=== PATIENT | female | born 1975 | race Caucasian/White ===

== ENCOUNTER 2019-01-19 08:57 | Emergency (ER) | payer BC, OTHER ==
[~2019-01-19] VITALS: Ht 170.2 cm; Wt 70.3 kg
[~2019-01-19 08:57] MED LIST: NASAL SPRAY30 ML; PROZAC40 MG PO
--- OUTSIDE RECORDS SUMMARY | 2019-01-19 09:01 | XMS REPORT ---
Author Author Raj Young Organization [employer] Address Unknown Phone Unavailable Care Team Providers Care Welfare Manager Name Role Phone Raj Young CP Unavailable Allergies, Adverse Reactions, Alerts Substance Reaction Event Type N.K.D.A. Info Not Available Non Drug Allergy Problems Problem Type Condition Code Onset Dates Condition Status Assessment Gastro-esophageal reflux disease with esophagitis K21.0 Active Problem Supraventricular tachycardia I47.1 Active Problem Palpitations R00.2 Active Problem Gastro-esophageal reflux disease with esophagitis K21.0 Active Assessment Supraventricular tachycardia I47.1 Active Assessment Anxiety disorder, unspecified F41.9 Active Problem Anxiety disorder, unspecified F41.9 Active Medications Medication Code System Code Instructions Start Date End Date Status Dosage Protonix [facility] [id number] 40 MG Orally Once a day Active 1 tablet Xanax ND 15972179149 0.25 MG Orally as needed (prn) Active 1 tablet Vital Signs Date/Time: September 11, 2018 BMI 23.96 Index Weight 153 lbs Height 5ft 7in in Cardiac Monitoring Heart Rate 89 /min Blood Pressure Diastolic 72 mm Hg Blood Pressure Systolic 110 mm Hg Results No Known Results Summary Purpose [employer] Submission
--- OUTSIDE RECORDS SUMMARY | 2019-01-19 09:01 | XMS REPORT | Continuity of Care Document ---
Author Author [facility] Address Unknown Phone Unavailable Care Team Providers Care School Supervisor Name Role Phone [employer] Unavailable Unavailable Problems Problem Status Onset Date Classification Date Reported Comments Source PALPITATIONS Active 09/01/2018 [facility] DX: [id number] DYSPEPSIA Active 09/01/2018 [facility] DX:R21.3=HYPERPARATHYROIDISM, UNSPECIFIE Active 12/06/2017 [facility] M06.4 - INFLAMMATORY POLYARTHROPATHY Active 10/06/2016 [facility] Palpitations Active Problem 09/13/2018 Raj Young MD, JACKIE Anxiety disorder, unspecified Active Diagnosis 09/13/2018 Raj Young MD, JACKIE Gastro-esophageal reflux disease with esophagitis Active Diagnosis 09/13/2018 Raj Young MD, JACKIE Supraventricular tachycardia Active Problem 09/13/2018 Raj Young MD, JACKIE Medications Medication Details Route Status Patient Instructions Ordering Provider Order Date Source Xanax 1 tablet Orally Active 0.25 MG Orally as needed (prn) Hannah Young MD, PA Protonix 1 tablet Orally Active 40 MG Orally Once a day Hannah Young MD, JACKIE Allergies, Adverse Reactions, Alerts Substance Category Reaction Severity Reaction type Status Date Reported Comments Source N.K.D.A. Adverse Reaction Info Not Available Adverse Reaction Active 09/11/2018 Raj Young MD, PA Immunizations No Data Provided for This Section Results No Data Provided for This Section Pathology Reports No Data Provided for This Section Diagnostic Reports Report Value Date Source Abdomen RUQ US Patient Name: ETHAN SALVADOR : 1975; Age: 43 years y/o Female MR: [id number] Study: Abdomen RUQ US 09/07/2018 8:18 CDT Ordering Physician: Lolita Fofana MD Clinical Indication: - dyspepsia; Comparison: 08/23/2008 Liver: Normal. Gallbladder: Normal. Common bile duct 4 mm, normal. Pancreas: Visualized portions normal. Pancreatic head and tail regions are not well seen, however. Right kidney: No hydronephrosis. No ascites fluid is seen in the right upper quadrant. IMPRESSION: No significant findings. SL: [id number] 09/07/2018 [facility] Parathyroid scan NM Clinical Indication: - E21.3 Hyperparathyroidism, unspecified; Comparison: None TECHNIQUE: Parathyroid scan is performed using 17.2 mCi of TcMIBI. 10 minute and 3 hour delayed coronal images are obtained. FINDINGS: There are no focal areas of increased radiotracer activity seen on the delayed images to suggest a parathyroid adenoma. There are no other foci of abnormal radiotracer activity seen. IMPRESSION: 1. No focal areas of increased radiotracer activity seen on the delayed images to suggest a parathyroid adenoma. SL: [id number] 12/20/2017 [facility] Thyroid US Patient Name: ETHAN SALVADOR : 1975; Age: 42 years y/o Female MR: [id number] Study: Thyroid US 12/20/2017 7:38 AM CDT Ordering Physician: Bienvenido Morrow MD Clinical Indication: - hyperthyrodism Comparison: None. TECHNIQUE: THYROID ECHOTEXTURE: Mildly diffusely heterogeneous and coarsened without significant hyperemia. RIGHT THYROID LOBE: Size: 5.3 x 1.5 x 2.1 cm. Nodules: Multiple subcentimeter nodules measuring up to 0.7 cm LEFT THYROID LOBE: Size: 4.8 x 1.5 x 1.7 cm. Nodules: Multiple subcentimeter nodules measuring up to 0.4 cm ISTHMUS: Size: 0.2 cm. Nodules: Small subcentimeter nodules. CERVICAL LYMPH NODES:No cervical lymphadenopathy. IMPRESSION: Mildly heterogeneous thyroid with multiple subcentimeter nodules. No suspicion for malignancy. SL: [id number] 12/20/2017 [facility] Hand 3 views Bilateral DX EXAM: XR BILATERAL HAND 3 VIEWS DATE: 10/06/2016 10:20 AM CDT INDICATION: M06.4 Inflammatory polyarthropathy COMPARISON: None TECHNIQUE: PA, lateral and oblique radiographs of the bilateral hands. FINDINGS: No acute fracture or malalignment is identified. Joint spaces and bone mineral density are preserved. No soft tissue abnormality is identified. IMPRESSION: No osseous or joint abnormality. 10/06/2016 [facility] Foot 3 views bilateral DX EXAM: XR BILATERAL FOOT 3 VIEWS DATE: 10/06/2016 10:20 AM CDT INDICATION: M06.4 Inflammatory polyarthropathy COMPARISON: None TECHNIQUE: AP, lateral and oblique radiographs of the bilateral feet FINDINGS: No acute fracture or malalignment is identified. No joint abnormality identified. No enthesophytes. No soft tissue abnormality is identified. IMPRESSION: No osseous or joint abnormality. 10/06/2016 [facility] Sacroiliac joints series DX EXAM: XR SACROILIAC JOINT 3 VIEWS DATE: 10/06/2016 10:20 AM CDT INDICATION: M06.4 Inflammatory polyarthropathy COMPARISON: None TECHNIQUE: AP, RPO and LPO radiographs of the sacroiliac joints FINDINGS: The sacroiliac joint widths are well preserved. No sclerosis or osseous erosion is seen on either side. No other bony abnormality is identified. No soft tissue abnormality is identified. IMPRESSION: No acute abnormality. 10/06/2016 [facility] Consultation Notes No Data Provided for This Section Discharge Summaries No Data Provided for This Section History and Physicals No Data Provided for This Section Vital Signs Vital Sign Value Date Comments Source Weight 153 09/11/2018 Raj Young MD, PA Heart Rate 89 09/11/2018 Raj Young MD, PA Diastolic (mm Hg) 72 09/11/2018 Raj Young MD, PA Systolic (mm Hg) 110 09/11/2018 Raj Young MD, PA Weight 70 09/01/2018 [facility] BMI Calculated 24.17 09/01/2018 [facility] Height 170.18 cm 09/01/2018 [facility] Encounters Location Location Details Encounter Type Encounter Number Reason For Visit Attending Provider ADM Date DC Date Status Source [facility] [place] [facility] [id number] Rain Lyman 10/06/2016 10/07/2016 [facility] [id number] Bienvenido Morrow 12/20/2017 12/21/2017 [facility] Outpatient [id number] Raj Young 09/01/2018 09/02/2018 [facility] Outpatient [id number] Lolita Fofana 09/07/2018 09/08/2018 [facility] Procedures No Data Provided for This Section Assessment and Plan No Data Provided for This Section Plan of Care No Data Provided for This Section Social History Social History Date Source No data available for this section 09/08/2018 [facility] No data available for this section 10/07/2016 [facility] [place] Family History No Data Provided for This Section Advance Directives No Data Provided for This Section Functional Status No Data Provided for This Section
--- OUTSIDE RECORDS SUMMARY | 2019-01-19 09:01 | XMS REPORT ---
Author Author Raj Young Organization [employer] Address Unknown Phone Unavailable Care Team Providers Care Chicken Hanger Name Role Phone Raj Young CP Unavailable Allergies No Known Allergies Problems Problem Type Condition Code Onset Dates Condition Status Problem Palpitations R00.2 Active Problem Anxiety disorder, unspecified F41.9 Active Medications Medication Code System Code Instructions Start Date End Date Status Dosage Xanax [facility] [id number] 0.25 MG Orally as needed (prn) Active 1 tablet Results No Known Results Summary Purpose [employer] Submission
--- OUTSIDE RECORDS SUMMARY | 2019-01-19 09:01 | XMS REPORT | Summary of Care ---
Author Author [facility] Organization [facility] Address Unknown Phone Unavailable Encounter HQ Encntr_sahara(FIN) [id number] Date(s): 09/07/18 - 09/07/18 [facility] [address] [place] [address]- Discharge Disposition: Home or Self Care Attending Physician: Lolita Fofana MD Referring Physician: Lolita Fofana MD Vital Signs No data available for this section Problem List No data available for this section Allergies, Adverse Reactions, Alerts Substance Reaction Severity Status NKDA Active Medications No data available for this section Results No data available for this section Immunizations No data available for this section Procedures No data available for this section Social History No data available for this section Assessment and Plan No data available for this section
--- OUTSIDE RECORDS SUMMARY | 2019-01-19 09:01 | XMS REPORT | Summary of Care ---
Author Author [facility] Outpatient Imaging [facility] Outpatient Imaging [facility] Address Unknown Phone Unavailable Encounter HQ Ileanar_gerardparul(TRISTIAN) [id number] Date(s): 10/06/16 - 10/06/16 [facility] Outpatient Imaging [facility] [address] [facility], [address] [place] [phone] Discharge Disposition: Home or Self Care Attending Physician: Rain Lyman MD Vital Signs No data available for this section Problem List No data available for this section Allergies, Adverse Reactions, Alerts No data available for this section Medications No data available for this section Results No data available for this section Immunizations No data available for this section Procedures No data available for this section Social History No data available for this section Assessment and Plan No data available for this section
--- OUTSIDE RECORDS SUMMARY | 2019-01-19 09:01 | XMS REPORT | Summary of Care ---
Author Author [facility] Organization [facility] Address Unknown Phone Unavailable Encounter HQ Tamara_sahara(TRISTIAN) [id number] Date(s): 09/01/18 - 09/01/18 [facility] [address] [place] [address]- Discharge Disposition: Home or Self Care Attending Physician: Raj Young MD Vital Signs Most recent to 1 oldest [Reference Range]: Height 170.18 cm (09/01/18 2:12 PM) Weight 70 kg (09/01/18 2:12 PM) Body Mass Index 24.17 m2 (09/01/18 2:12 PM) Problem List No data available for this [...]
--- OUTSIDE RECORDS SUMMARY | 2019-01-19 09:01 | XMS REPORT | Summary of Care ---
Author Author [facility] Organization [facility] Address Unknown Phone Unavailable Encounter HQ Ileanar_sahara(FIN) [id number] Date(s): 12/20/17 - 12/20/17 [facility] [address] [place] [address]- Discharge Disposition: Home or Self Care Attending Physician: Bienvenido Morrow MD Referring Physician: Bienvenido Morrow MD Vital Signs No data available for [...]
[2019-01-19] MEDS ORDERED: SODIUM CHLORIDE 0.9% 1000ML 1,000 ML IV SCH (09:15)
[2019-01-19 09:27] LABS: BASOPHILS % 0.6 % (0.0-1.0); EOSINOPHILS % 0.6 % (0.0-6.0); HEMATOCRIT 40.2 % (34.2-44.1); HEMOGLOBIN 13.9 g/dL (12.0-16.0); LYMPHOCYTES # (AUTO) 1.9 (1.0-3.2); MEAN CORPUSCULAR HEMOGLOBIN 30.8 pg (28-32); MEAN CORPUSCULAR HGB CONC 34.6 g/dL (31-35); MEAN CORPUSCULAR VOLUME 89.1 fL (81-99); MONOCYTES # (AUTO) 0.3 (0.2-0.8); NEUTROPHILS % 56.4 % (38.7-80.0); PLATELET COUNT 317 x10e3/uL (140-360); RED BLOOD COUNT 4.51 x10e6/uL (3.6-5.1); RED CELL DISTRIBUTION WIDTH 12.2 % (11.7-14.4)
[2019-01-19] MEDS ORDERED: KETOROLAC TROMETHAMINE 30 MG/ML VIAL IV ONE (09:30)
[2019-01-19] MEDS ORDERED: ONDANSETRON HCL INJ 2MG/ML 2ML 2 MG/ML VIAL IV ONE (09:30)
[2019-01-19 09:50] LABS: ALANINE AMINOTRANSFERASE 10 IU/L (0-55); ALBUMIN 4.1 g/dL (3.5-5.0); ALBUMIN/GLOBULIN RATIO 1.6 (0.8-2.0); ALKALINE PHOSPHATASE 54 IU/L (40-150); ANION GAP 16.4 mmol/L (8-16); BLOOD UREA NITROGEN 10 mg/dL (7-26); BUN/CREATININE RATIO 12 (6-25); CALCIUM 10.3 mg/dL (8.4-10.2); CARBON DIOXIDE 20 mmol/L (22-29); CHLORIDE 105 mmol/L (98-107); CREATININE, SERUM 0.85 mg/dL (0.57-1.11); EST GLOMERULAR FILTRATION RATE > 60 ML/MIN (60-); GLUCOSE 125 mg/dL (74-118); LIPASE 16 U/L (8-78); POTASSIUM 3.4 mmol/L (3.5-5.1); SODIUM 138 mmol/L (136-145)
[2019-01-19 10:37] LABS: BILIRUBIN,URINE NEGATIVE (NEGATIVE); CLARITY,URINE SL CLOUDY (CLEAR); COLOR,URINE YELLOW (YELLOW); LEUKOCYTE ESTERASE ,URINE NEGATIVE (NEGATIVE); NITRITE,URINE NEGATIVE (NEGATIVE); PROTEIN,URINE DIPSTICK TRACE (NEGATIVE); URINE UROBILINOGEN 0.2 mg/dL (0.2 - 1)
--- NOTE | 2019-01-19 10:37 | Diagnostic Imaging Report ---
EXAM: CT Abdomen and Pelvis WITHOUT intravenous contrast INDICATION: Flank pain COMPARISON: None. TECHNIQUE: Abdomen and pelvis were scanned utilizing a multidetector helical scanner from the lung base to the pubic symphysis without administration of IV contrast. Coronal and sagittal reformations were obtained. IV CONTRAST: None ORAL CONTRAST: None COMPLICATIONS: None RADIATION DOSE: Total DLP: 339.3 mGy*cm Dose modulation, iterative reconstruction, and/or weight based adjustment of the mA/kV was utilized to reduce the radiation dose to as low as reasonably achievable. FINDINGS: LOWER THORAX: Normal. HEPATOBILIARY: No focal hepatic lesions. The gallbladder appears unremarkable. SPLEEN: No splenomegaly. PANCREAS: No focal masses or ductal dilatation. ADRENALS: No adrenal nodules. KIDNEYS/URETERS: 3 mm calculus at the right ureterovesical junction with resulting mild right hydroureteronephrosis. No renal calculi. No left hydronephrosis. PELVIC ORGANS/BLADDER: Status post hysterectomy. PERITONEUM / RETROPERITONEUM: No free air or fluid. LYMPH NODES: No lymphadenopathy. VESSELS: Unremarkable. GI TRACT: No distention or wall thickening. Normal appendix. BONES AND SOFT TISSUES: Unremarkable. IMPRESSION: 3 mm right ureterovesical junction calculus with resulting mild right hydroureteronephrosis. No left hydronephrosis or renal calculi. Signed by: Handy Regalado MD on 01/19/2019 10:33 AM
[2019-01-19 10:45] LABS: KETONES,URINE 2+ (NEGATIVE)
[2019-01-19 10:46] LABS: PREGNANCY TEST, URINE NEGATIVE (NEGATIVE)
[2019-01-19 10:47] LABS: AMPHETAMINES SCREEN,URINE NEGATIVE (NEGATIVE); BENZODIAZEPINES SCREEN,URINE NEGATIVE (NEGATIVE); PHENCYCLIDINE SCREEN,URINE NEGATIVE (NEGATIVE)
[2019-01-19 10:50] LABS: AMORPHOUS SEDIMENT,URINE FEW (FEW); BACTERIA,URINE MODERATE /HPF; EPITHELIAL CELLS,URINE MODERATE /LPF; MUCUS,URINE FEW (RARE); RBC,URINE >50 /HPF (0-5)
[2019-01-19] MEDS ORDERED: ZOFRAN4 MG PO (10:59)
[2019-01-19] MEDS ORDERED: FLOMAX0.4 MG PO (10:59)
== END 2019-01-19 11:55 | disposition home or self-care (01) ==
LOC: ER 08:57
DX: R10.30 Lower abdominal pain, unspecified (principal); R10.2 Pelvic and perineal pain; R11.2 Nausea with vomiting, unspecified; N20.1 Calculus of ureter
CPT/HCPCS: 36415; 74176; 80053; 80307; 81001; 81025; 83690; 85025; 99284; J1885; J2405; J7030

== ENCOUNTER 2019-12-24 10:35 | Emergency (ER) | payer OTHER ==
[~2019-12-24] VITALS: Ht 170.2 cm; Wt 70.3 kg
[~2019-12-24 10:35] MED LIST changes: +FLOMAX0.4 MG PO; +ZOFRAN4 MG PO
--- NOTE | 2019-12-24 10:44 | Emergency Department Note ---
History of Present Illnes History of Present Illness Chief Complaint: General Medicine Complaints History of Present Illness This is a 44 year old female with 3 week h/o of malaise and low blood pressure that started this AM. Denies f/c/n/v .Reports having fevers on 12/07/2019 but had a neg COVID-19 test. patient with (+) family member with COVID-19. Seen at triage anxious . Historian: Patient Arrival Mode: Car Onset (how long ago): week(s) Severity: moderate Onset quality: gradual Duration (how long): week(s) (3) Timing of current episode: constant Progression: worsening Chronicity: new Associated symptoms: Reports fever/chills, Reports malaise, Reports shortness of breath Treatments prior to arrival: none Past Medical/Family History Physician Review I have reviewed the patient's past medical and family history. Any updates have been documented here. Past Medical History Recent Fever: No Clinical Suspicion of Infectio: Yes New/Unexplained Change in Ment: No Past Medical History: Anxiety Other Medical History: PANIC DISORDER Past Surgical History: Hysterectomy Other Surgery: LEEP PROCEDURE Social History Alcohol Use: None Any Illegal Drug Use: No Other Last Tetanus: UNKNOWN Review of Systems Review of Systems Constitutional: Reports malaise EENTM: Reports no symptoms Cardiovascular: Reports no symptoms Respiratory: Reports no symptoms Gastrointestinal: Reports no symptoms Genitourinary: Reports no symptoms Musculoskeletal: Reports no symptoms Integumentary: Reports no symptoms Neurological: Reports no symptoms Psychological: Reports anxiety Endocrine: Reports no symptoms Hematological/Lymphatic: Reports no symptoms Physical Exam Related Data Allergies: Coded Allergies: No Known Allergies (Unverified , 01/19/19) Triage Vital Signs Vital Signs Date Time Temp Pulse Resp B/P (MAP) Pulse Ox O2 Delivery O2 Flow Rate FiO2 12/24/19 10:40 97.9 97 18 125/68 100 Room Air Vital signs reviewed: Yes Physical Exam CONSTITUTIONAL Constitutional: Present well-developed, Present well-nourished, Present other (anxious); Absent ill appearing HENT HENT: Present normocephalic, Present atraumatic, Present oropharynx clear/moist, Present nose normal HENT L/R: Present left ext ear normal, Present right ext ear normal EYES Eyes: Reports PERRL, Reports conjunctivae normal NECK Neck: Present ROM normal PULMONARY Pulmonary: Present effort normal, Present breath sounds normal CARDIOVASCULAR Cardiovascular: Present heart sounds normal, Present tachycardia GASTROINTESTINAL Abdominal: Present soft, Present nontender, Present bowel sounds normal GENITOURINARY Genitourinary: Present exam deferred SKIN Skin: Present warm, Present dry MUSCULOSKELETAL Musculoskeletal: Present ROM normal NEUROLOGICAL Neurological: Present alert, Present oriented x 3, Present no gross motor or sensory deficits PSYCHOLOGICAL Psychological: Present mood/affect normal, Present judgement normal Results Imaging Imaging results reviewed: Yes Impressions [place] [address] Patient Name: ETHAN SALVADOR MR #: [id number] : 1975 Age/Sex: 44/F Req #: [id number] Adm Physician: Ordered by: CARMEN PEREIRA DO Report #: [id number] Location: ER Room/Bed: Procedure: [id number] DX/CHEST SINGLE (PORTABLE) Exam Date: 12/24/19 Exam Time: 1110 REPORT STATUS: Signed EXAMINATION: CHEST SINGLE (PORTABLE) INDICATION: Hypotension, tachycardia COMPARISON: None FINDINGS: LINES/TUBES:None LUNGS:The lungs are well-inflated. No focal consolidation or pulmonary edema. PLEURA:No pleural effusion or pneumothorax. MEDIASTINUM:The cardiomediastinal silhouette appears normal in size and shape. BONES/SOFT TISSUES:No acute osseous injury. ABDOMEN:No free air under the diaphragm. IMPRESSION: No focal pneumonia or pulmonary edema. Signed by: Tere Regalado MD on 12/24/2019 12:33 PM Dictated By: TERE REGALADO MD 1233 Transcribed By: LAMIN on 12/24/19 1233 COPY TO: CARMEN PEREIRA DO~ Procedures 12 Lead ECG Interpretation ECG Interpretation : ECG: ECG 1 Ground Hand: Interpreted by ED physician Date: Dec 24, 2019 Time: 10:52 Prior ECG tracings: reviewed Rhythm: sinus rhythm Rate: normal BPM: 78 QRS axis: normal ST segments normal: Yes T waves normal: Yes Clinical Impression: normal ECG Assessment & Plan Medical Decision Making MDM 44 yof with fever and myalgias. (+) contact with family members with similiar symptoms. COVID-19 highly suspected but testing deferred secondary to stable vital signs and high oxygen saturation on RA. Patient to be given Rx Azithromycin and albuterol. Patient to be given resources for outpatient testing center- Assessment & Plan Final Impression: (1) Viral syndrome Depart Disposition: HOME, SELF-residential Meds Active Scripts Ondansetron Hcl* (ZOFRAN*) 4 Mg Tablet, 4 MG PO Q4HR for nausea, #20 Prov:CARMEN PEREIRA DO 01/19/19 Tamsulosin Hcl* (FLOMAX*) 0.4 Mg Cap, 0.4 MG PO DAILY for 10 Days Prov:CARMEN PEREIRA DO 01/19/19 Reported Medications Oxymetazoline Hcl (NASAL SPRAY) 30 Ml Mist, NA DAILY 12/11/12 Fluoxetine Hcl (PROZAC) 40 Mg Capsule, 40 MG PO DAILY 12/11/12 CARMEN PEREIRA DO Dec 24, 2019 10:44
--- NOTE | 2019-12-24 12:36 | Diagnostic Imaging Report ---
EXAMINATION: CHEST SINGLE (PORTABLE) INDICATION: Hypotension, tachycardia COMPARISON: None FINDINGS: LINES/TUBES:None LUNGS:The lungs are well-inflated. No focal consolidation or pulmonary edema. PLEURA:No pleural effusion or pneumothorax. MEDIASTINUM:The cardiomediastinal silhouette appears normal in size and shape. BONES/SOFT TISSUES:No acute osseous injury. ABDOMEN:No free air under the diaphragm. IMPRESSION: No focal pneumonia or pulmonary edema. Signed by: Handy Regalado MD on 12/24/2019 12:33 PM
== END 2019-12-24 12:44 | disposition home or self-care (01) ==
LOC: ER 10:46
DX: B34.9 Viral infection, unspecified (principal); Z03.818 Encounter for observation for suspected exposure to other biological agents ruled out
CPT/HCPCS: 71045; 93005; 99283

== ENCOUNTER 2019-12-29 16:54 | Emergency (ER) | payer OTHER ==
[~2019-12-29] VITALS: Ht 170.2 cm; Wt 70.3 kg
[2019-12-29 20:00] LABS: BASOPHILS % 0.4 % (0.0-1.0); EOSINOPHILS % 0.4 % (0.0-6.0); HEMATOCRIT 39.6 % (34.2-44.1); HEMOGLOBIN 13.4 g/dL (12.0-16.0); LYMPHOCYTES % 25.4 % (18.0-39.1); MEAN CORPUSCULAR HEMOGLOBIN 29.6 pg (28-32); MEAN CORPUSCULAR HGB CONC 33.8 g/dL (31-35); MEAN CORPUSCULAR VOLUME 87.6 fL (81-99); MONOCYTES # (AUTO) 0.5 (0.2-0.8); MONOCYTES % 5.9 % (4.4-11.3); NEUTROPHILS # (AUTO) 5.3 (2.1-6.9); NEUTROPHILS % 67.6 % (38.7-80.0); PLATELET COUNT 384 x10e3/uL (140-360); RED BLOOD COUNT 4.52 x10e6/uL (3.6-5.1); RED CELL DISTRIBUTION WIDTH 12.6 % (11.7-14.4)
[2019-12-29 20:18] LABS: ALANINE AMINOTRANSFERASE 15 IU/L (0-55); ALBUMIN 4.3 g/dL (3.5-5.0); ALBUMIN/GLOBULIN RATIO 1.3 (0.8-2.0); ALKALINE PHOSPHATASE 62 IU/L (40-150); ANION GAP 13.7 mmol/L (8-16); BLOOD UREA NITROGEN 11 mg/dL (7-26); BUN/CREATININE RATIO 15 (6-25); CARBON DIOXIDE 19 mmol/L (22-29); CHLORIDE 111 mmol/L (98-107); CREATININE, SERUM 0.72 mg/dL (0.57-1.11); EST GLOMERULAR FILTRATION RATE > 60 ML/MIN (60-); GLUCOSE 89 mg/dL (74-118); POTASSIUM 3.7 mmol/L (3.5-5.1); SODIUM 140 mmol/L (136-145)
[2019-12-29 20:37] LABS: THYROID STIMULATING HORMONE 0.908 uIU/mL (0.350-4.940)
--- NOTE | 2019-12-29 21:08 | Emergency Department Note ---
History of Present Illnes History of Present Illness Chief Complaint: COVID PUI History of Present Illness This is a 44 year old female N FROM HOME WITH COMPLAINTS OF SHORTNESS OF BREATH, AND LOW BLOOD PRESSURE X 1 WEEK, PATIENT STATES THAT SHE TESTED POSITIVE FOR COVID-19 - SHE GOT THE RESULTS TUESDAY. PATIENT STATES THAT SHE FEELS SHE NEEDS A DIABETES PANEL AND THYROID PANEL, AND THAT SHE FEELS LIKE HER POTASSIUM IS LOW. . Historian: Patient Arrival Mode: Car Onset (how long ago): day(s) (7) Location: ALL OVER Quality: COUGH, SOB, MALAISE, GENERALIZED WEAKNESS Radiation: Reports non-radiation Severity: moderate Onset quality: gradual Duration (how long): day(s) (7) Timing of current episode: constant Progression: unchanged Chronicity: new Context: Reports recent illness (COVID 19 POSITIVE) Relieving factors: none Exacerbating factors: none Associated symptoms: Reports cough, Reports fever/chills, Reports malaise, Reports shortness of breath Treatments prior to arrival: none Past Medical/Family History Physician Review I have reviewed the patient's past medical and family history. Any updates have been documented here. Past Medical History Recent Fever: No Clinical Suspicion of Infectio: Yes New/Unexplained Change in Ment: No Past Medical History: Anxiety, Depression Other Medical History: PANIC DISORDER Past Surgical History: Hysterectomy Other Surgery: LEAP PROCEDURE Social History Smoking Cessation: Never Smoker Alcohol Use: None Any Illegal Drug Use: No Physically hurt or threatened: No Family History Family history of heart diseas: No Other Last Tetanus: UNKNOWN Review of Systems Review of Systems Constitutional: Reports as per HPI EENTM: Reports no symptoms Cardiovascular: Reports no symptoms Respiratory: Reports as per HPI Gastrointestinal: Reports no symptoms Genitourinary: Reports no symptoms Musculoskeletal: Reports no symptoms Integumentary: Reports no symptoms Neurological: Reports as per HPI Psychological: Reports no symptoms Endocrine: Reports no symptoms Hematological/Lymphatic: Reports no symptoms Physical Exam Related Data Allergies: Coded Allergies: No Known Allergies (Unverified , 01/19/19) Triage Vital Signs Vital Signs Date Time Temp Pulse Resp B/P (MAP) Pulse Ox O2 Delivery O2 Flow Rate FiO2 12/29/19 17:09 98.1 99 20 116/82 100 Room Air Vital signs reviewed: Yes Physical Exam CONSTITUTIONAL Constitutional: Present well-developed, Present well-nourished; Absent distressed HENT HENT: Present normocephalic, Present atraumatic, Present oropharynx clear/moist, Present nose normal HENT L/R: Present left ext ear normal, Present right ext ear normal EYES Eyes: Reports PERRL, Reports conjunctivae normal NECK Neck: Present ROM normal PULMONARY Pulmonary: Present effort normal, Present breath sounds normal CARDIOVASCULAR Cardiovascular: Present regular rhythm, Present heart sounds normal, Present capillary refill normal, Present normal rate GASTROINTESTINAL Abdominal: Present soft, Present nontender, Present bowel sounds normal GENITOURINARY Genitourinary: Present exam deferred SKIN Skin: Present warm, Present dry MUSCULOSKELETAL Musculoskeletal: Present ROM normal NEUROLOGICAL Neurological: Present alert, Present oriented x 3, Present no gross motor or sensory deficits PSYCHOLOGICAL Psychological: Present mood/affect normal, Present judgement normal Results Laboratory Result Diagram: 12/29/19191312/29/191913 Laboratory Laboratory Tests Test 12/29/19 19:14 White Blood Count 7.76 x10e3/uL (4.8-10.8) Red Blood Count 4.52 x10e6/uL (3.6-5.1) Hemoglobin 13.4 g/dL (12.0-16.0) Hematocrit 39.6 % (34.2-44.1) Mean Corpuscular Volume 87.6 fL (81-99) Mean Corpuscular Hemoglobin 29.6 pg (28-32) Mean Corpuscular Hemoglobin Concent 33.8 g/dL (31-35) Red Cell Distribution Width 12.6 % (11.7-14.4) Platelet Count 384 x10e3/uL (140-360) Neutrophils (%) (Auto) 67.6 % (38.7-80.0) Lymphocytes (%) (Auto) 25.4 % (18.0-39.1) Monocytes (%) (Auto) 5.9 % (4.4-11.3) Eosinophils (%) (Auto) 0.4 % (0.0-6.0) Basophils (%) (Auto) 0.4 % (0.0-1.0) Neutrophils # (Auto) 5.3 (2.1-6.9) Lymphocytes # (Auto) 2.0 (1.0-3.2) Monocytes # (Auto) 0.5 (0.2-0.8) Eosinophils # (Auto) 0.0 (0.0-0.4) Basophils # (Auto) 0.0 (0.0-0.1) Absolute Immature Granulocyte (auto 0.02 x10e3/uL (0-0.1) Sodium Level 140 mmol/L (136-145) Potassium Level 3.7 mmol/L (3.5-5.1) Chloride Level 111 mmol/L (98-107) Carbon Dioxide Level 19 mmol/L (22-29) Anion Gap 13.7 mmol/L (8-16) Blood Urea Nitrogen 11 mg/dL (7-26) Creatinine 0.72 mg/dL (0.57-1.11) Estimat Glomerular Filtration Rate > 60 ML/MIN (60-) BUN/Creatinine Ratio 15 (6-25) Glucose Level 89 mg/dL (74-118) Calcium Level 10.0 mg/dL (8.4-10.2) Magnesium Level 2.2 MG/DL (1.3-2.1) Total Bilirubin 0.6 mg/dL (0.2-1.2) Aspartate Amino Transf (AST/SGOT) 14 IU/L (5-34) Alanine Aminotransferase (ALT/SGPT) 15 IU/L (0-55) Alkaline Phosphatase 62 IU/L (40-150) Total Protein 7.7 g/dL (6.5-8.1) Albumin 4.3 g/dL (3.5-5.0) Globulin 3.4 g/dL (2.3-3.5) Albumin/Globulin Ratio 1.3 (0.8-2.0) Thyroid Stimulating Hormone (TSH) 0.908 uIU/mL (0.350-4.940) Lab results reviewed: Yes Assessment & Plan Medical Decision Making MDM PT WITH COVID 19 PRESENTS WITH SOB,COUGH, WEAKNESS, WORRIED HER ELECTROLYTES ARE LOW CBC,CMP, ORDERED TO EVAL FOR LEUKOCYTOSIS, ELECTROLYTE ABNORMALITY Reassessment Reassessment time: 21:06 Reassessment PT STILL IN NO APPARENT DISTRESS, RR 18, OXYGEN SATURATION 100% ON ROOM AIR, NO RESPIRATORY DISTRESS. Assessment & Plan Final Impression: (1) COVID-19 (2) Viral syndrome Depart Disposition: HOME, SELF-CARE Last Vital Signs Date Time Temp Pulse Resp B/P (MAP) Pulse Ox O2 Delivery O2 Flow Rate FiO2 12/29/19 17:09 98.1 99 20 116/82 100 Room Air Home Meds Active Scripts Ondansetron Hcl* (ZOFRAN*) 4 Mg Tablet, 4 MG PO Q4HR for nausea, #20 Prov:CARMEN PEREIRA DO 01/19/19 Tamsulosin Hcl* (FLOMAX*) 0.4 Mg Cap, 0.4 MG PO DAILY for 10 Days Prov:CARMEN PEREIRA DO 01/19/19 Reported Medications Oxymetazoline Hcl (NASAL SPRAY) 30 Ml Mist, NA DAILY 12/11/12 Fluoxetine Hcl (PROZAC) 40 Mg Capsule, 40 MG PO DAILY 12/11/12 DANELLE YOUNGER MD Dec 29, 2019 21:07
[2019-12-29 21:14] VITALS: BP 109/69
== END 2019-12-29 21:20 | disposition home or self-care (01) ==
LOC: ER 18:00
DX: U07.1 COVID-19 (principal); B34.9 Viral infection, unspecified; R06.02 Shortness of breath; R05 Cough; R53.81 Other malaise; R53.1 Weakness; F41.9 Anxiety disorder, unspecified; F41.0 Panic disorder [episodic paroxysmal anxiety]
CPT/HCPCS: 36415; 80053; 83735; 84443; 85025; 99283

== ENCOUNTER → 2024-05-28 | Outpatient (REF) | payer OTHER ==
[~2024-05-28] MED LIST changes: +IOPAMIDOL 370 MG/ML 100 ML INFUS..BTL INJ ONE; +SODIUM CHLORIDE 0.9% 100 ML ONE
== END ==
LOC: CT 16:02
PROVIDERS: ATTEND Internal Medicine Cardiovascular Disease
DX: I71.9 Aortic aneurysm of unspecified site, without rupture (principal); I48.91 Unspecified atrial fibrillation; R00.2 Palpitations
CPT/HCPCS: 71275; J7050; Q9967